=== PATIENT | male | born 1980 | race Two or more races ===

== ENCOUNTER 2024-12-11 09:36 | Emergency (ER) | payer MEDICAID, OTHER ==
[~2024-12-11] VITALS: Ht 188 cm; Wt 85.6 kg
[2024-12-11 09:38] VITALS: BP 136/85; RESP 18; TEMP 97.9; O2SAT 100
[2024-12-11 10:14] VITALS: PULSE 39
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
--- NOTE | 2024-12-14 07:36 | ECG ---
[facility] Test Date: 2024-12-11 Test Time: 09:48:20 Pat Name: KENDELL TSAI Department: ED Room: Gender: Security Patrol Driver: HELEN : 1980 Requested By: DAVEY GAMBLE Order Number: [id number] Reading MD: Measurements Intervals [place] Rate: 39 P: 26 LA: 173 QRS: 32 QRSD: 93 T: 39 QT: 483 QTc: 389 Interpretive Statements Sinus bradycardia Please click the below link to view image of tracing.
== END 2024-12-11 22:33 | disposition left against medical advice (07) ==
LOC: ER 09:36
DX: R00.1 Bradycardia, unspecified (principal)
CPT/HCPCS: 93005; 99291; 99292